=== PATIENT | female | born 1935 | race Caucasian/White ===

== ENCOUNTER → 2020-09-11 | Outpatient (CLI) | payer MEDICARE, OTHER ==
--- NOTE | 2020-09-11 15:29 | RAD ---
EXAM: Chest, 2 views. HISTORY: Chest pain. COMPARISON: None. FINDINGS: 2 views of the chest are obtained. There is increased right lung and left lower lobe inters titial opacity due to interstitial infiltrate or chronic interstitial changes. There is a prominent c ardiac silhouette. There is no pleural effusion or pneumothorax. IMPRESSION: Diffuse right lung and left lower lobe interstitial infiltrate or chronic initial changes . There is no consolidated pneumonia. Electronically signed by: Gris Dunn MD (09/11/2020 3:26 PM) [id number]
== END ==
LOC: RAD 14:57
PROVIDERS: ATTEND Specialist
DX: I50.21 Acute systolic (congestive) heart failure (principal)
CPT/HCPCS: 71046

== ENCOUNTER 2020-09-16 19:11 | Emergency (ER) | payer MEDICARE, OTHER ==
[~2020-09-16] VITALS: Ht 157.5 cm; Wt 88.6 kg
--- NOTE | 2020-09-16 19:24 | PHYS DOC ---
Past History Past Medical History: Anemia, Arthritis, CHF Past Medical History Parkinson General Adult EDM: Chief Complaint: BACK PAIN - NO INJURY HPI: HPI: ".. My back started hurting 2 days ago.. here on Lt... I got parkinson.. but this feels like pleursey... ".." My legs are also swelling more.. ".."..The main reason .. I am here is my back just hurts all the time.. Especially here on the left..something not right.. " " I have not fallen or anything.." Patient is a 85 year old female who presents with above hx and complaints back pain lumbar and thoracic x2 days. Patient denies any trauma. Patient denies any recent changes in meds. Patient has noted increased swelling in bilateral legs. Patient denies any history of coagulopathy. Does have a history of CHF, Parkinson, and anemia. The patient normally follows with [facility]. No history of fall or severe history of injury. No history of travel. No specific ill contacts. Has had a nonproductive cough. Review of Systems: Review of Systems: Constitutional: Denies fever or chills Eyes: Denies change in visual acuity HENT: Denies nasal congestion or sore throat Respiratory: Denies cough or shortness of breath Cardiovascular: Complains of increasing bilateral leg edema GI: Complains of abdominal pain, nausea,. Complains of flank pain. Denies vomiting, bloody stools or diarrhea : Denies dysuria Musculoskeletal: complaints of lumbar and Thoracic back pain and joint pain Integument: Denies rash Neurologic: Denies headache, focal weakness or sensory changes Endocrine: Denies polyuria or polydipsia Lymphatic: Denies swollen glands Psychiatric: Denies depression or anxiety Family History: Family History: Non-contributory Current Medications: Current Meds: See Nursing for home meds Allergies: Allergies: NKDA Physical Exam: PE: Constitutional: in acute distress, non-toxic appearance. [] HENT: Normocephalic, atraumatic, bilateral external ears normal, oropharynx moist, no oral exudates, nose normal. [] Eyes: PERRLA, EOMI, conjunctiva pale, no discharge. [] Neck: Normal range of motion, no tenderness, supple, no stridor. JVD in the sitting position Cardiovascular: Tachycardia heart rate, regular rhythm, no murmur [] Lungs & Thorax: Bilateral breath sounds equal apex with bibasilar crackles on auscultation [. PMI to the left Abdomen: Bowel sounds normal, soft, no tenderness, no masses, no pulsatile masses. Obese. Skin: Warm, dry, no erythema, no rash. Poor turgor Back: Thoracic and Lumbar tenderness, Lt CVA tenderness. Marked pain on percussion left flank. Extremities: No tenderness, no cyanosis, no clubbing, ROM intact, 2+ pitting edema. At level of knees. No cording appreciated. Arthritic changes. Neurologic: Alert and oriented X 3, moves extremities on request, does have distal sensory, no focal deficits noted. [] Psychologic: Affect anxious, judgement normal, mood normal. [] EKG: EKG: My interpretation of EKG shows a sinus tachycardia at 106 bpm. With left axis deviation. 1947 hrs. My interpretation of second EKG shows a sinus tachycardia 102 bpm. Still has left axis. No acute interval change from prior EKG EKG at 2350 hrs. Radiology/Procedures: Radiology/Procedures: [] [address] [place] [id number] [address] IMAGING REPORT Signed PATIENT: MANDY STEEN BACCOUNT: [id number] : 1935 LOCATION: ER AGE: 85 SEX: F EXAM STATUS: REG ER ORD. PHYSICIAN: KOKI AUGUSTIN MD REASON: PROCEDURE: PORTABLE CHEST 1V EXAM: CHEST ONE VIEW. HISTORY: Chest pain. COMPARISON: 09/11/2020. FINDINGS: A frontal view of the chest is obtained. There are mild bilateral basilar predominant interstitial opacities. There is no pneumothorax or clear pleural effusion. The heart is mildly enlarged. The aorta is calcified and tortuous. IMPRESSION: 1. Basilar predominant interstitial opacities are consistent with interstitial lung disease if chronic or mild pulmonary edema if acute. 2. Mild cardiomegaly. Electronically signed by: Tressa Srinivasan MD (09/16/2020 9:16 PM) [facility] DICTATED AND SIGNED BY: REJI SRINIVASAN MD DATE: 09/16/202113 CC: KOKI AUGUSTIN MD; SONIA ALFARO MD ~MTH0 0 IMAGING REPORT Signed PATIENT: MANDY STEENUNT: [id number] : 1935 LOCATION: ER AGE: 85 SEX: F EXAM STATUS: REG ER ORD. PHYSICIAN: KOKI AUGUSTIN MD REASON: pain, after cough PROCEDURE: CT THORACIC SPINE WO CONTRAST CT thoracic and lumbar spine without contrast 09/16/2020. Reason for exam: Pain after coughing. Helical noncontrast images were performed. Sagittal and coronal reconstructions were obtained. Exposure: One or more of the following individualized dose reduction techniques were utilized for this examination: 1. Automated exposure control 2. Adjustment of the mA and/or kV according to patient size 3. Use of iterative reconstruction technique. Thoracic spine findings: Alignment is normal. There is mild superior endplate compression of T6 and suggestion of mild wedging of T4. These are favored to be chronic. No acute fracture or destructive process is seen. Evaluation of the soft tissue components of the canal is limited without intrathecal contrast. A few mildly prominent lymph nodes are seen in the mediastinum. There is suggestion of some interstitial prominence with interlobular septal thickening. This may indicate edema. Infiltrate or atelectasis is seen posteriorly in the lower lobes. There is some calcification at the aortic valve. IMPRESSION: Some degenerative changes and chronic compressions are seen. No acute abnormality is identified. CT lumbar spine: There is some anterolisthesis of L4 on L5 measuring about 7 mm. Alignment otherwise appears normal. There is no loss of vertebral body height or other evidence for fracture. No destructive process is seen. Evaluation of the soft tissue components of the canal is limited without intrathecal contrast. There is likely at least some spinal stenosis at L4-5. Incidental note is made of a masslike structure arising laterally from the lower left kidney and extending over at least 4 cm. This has higher attenuation than a simple cyst, and a solid mass is possible. IMPRESSION: Potentially solid left renal mass. Neoplasm is a concern. There are degenerative changes and spondylolisthesis in the lumbar spine. No fracture or other acute abnormality is seen. Electronically signed by: Na Knox Jr., MD (09/16/2020 9:19 PM) [facility] DICTATED AND SIGNED BY: NA KNOX Jr, MD DATE: 09/16/202109 CC: KOKI AUGUSTIN MD; SONIA ALFARO MD ~MTH0 0 Heart Score: C/O Chest Pain: Yes HEART Score for Chest Pain: HEART Score for Chest Pain Response (Comments) Value History Moderately Suspicious 1 ECG Nonspecific Repolarizatio 1 Age > 65 2 Risk Factors 1 or 2 Risk Factors 1 Troponin < Normal Limit 0 Total 5 Risk Factors: Risk Factors: DM, Current or recent (<one month) smoker, HTN, HLP, family history of CAD, obesity. Risk Scores: Score 0 - 3: 2.5% MACE over next 6 weeks - Discharge Home Score 4 - 6: 20.3% MACE over next 6 weeks - Admit for Clinical Observation Score 7 - 10: 72.7% MACE over next 6 weeks - Early Invasive Strategies Course & Med Decision Making: Course & Med Decision Making Pertinent Labs and Imaging studies reviewed. (See chart for details) Discussed presentation, testing and tx plan with Dr. Cárdenas. Pt to be transfer to [facility] for cardiology and oncology consult. Impression: 1. Chest pain 2. Afib 3. Anemia Hgb 8.8 4. Back Pain 5. Renal Mass Lt.- Neoplasm suspected 6. CHF- BNP 1,072 7, Elevated D-dimer 1.66 [] Dragon Disclaimer: Dragon Disclaimer: This electronic medical record was generated, in whole or in part, using a voice recognition dictation system. Departure Departure: Referrals: SONIA ALFARO MD (PCP) [place] Disclaimer This chart was dictated in whole or in part using Voice Recognition software in a busy, high-work load, and often noisy Emergency Department environment. It may contain unintended and wholly unrecognized errors or omissions. Dragon Disclaimer This chart was dictated in whole or in part using Voice Recognition software in a busy, high-work load, and often noisy Emergency Department environment. It may contain unintended and wholly unrecognized errors or omissions. KOKI AUGUSTIN MD Sep 16, 2020 19:24
[2020-09-16] MEDS ORDERED: IV RINGERS SOLUTION,LACTATED 1,000 ML IV SCH (19:45)
[2020-09-16] MEDS ORDERED: MORPHINE SULFATE 10 MG/ML SYRINGE. SQ ONE (20:15)
[2020-09-16 20:27] LABS: BASO # 0.1 x10^3/uL (0.0-0.2); BASO % 1 % (0-3); EOS # 0.5 x10^3/uL (0.0-0.7); EOS % 6 % (0-3); HEMATOCRIT 28.1 % (36.0-47.0); HEMOGLOBIN 8.8 g/dL (12.0-15.5); LYMPH # 1.5 x10^3/uL (1.0-4.8); LYMPH % 18 % (24-48); MEAN CORPUSCULAR HEMOGLOBIN 25 pg (25-35); MEAN CORPUSCULAR HGB CONC 32 g/dL (31-37); MEAN CORPUSCULAR VOLUME 80 fL (79-100); MONO # 0.8 x10^3/uL (0.0-1.1); MONO % 9 % (0-9); NEUT # 5.5 x10^3uL (1.8-7.7); NEUT % 66 % (31-73); PLATELET COUNT 357 x10^3/uL (140-400); RED BLOOD COUNT 3.53 x10^6/uL (3.50-5.40); RED CELL DISTRIBUTION WIDTH 18.4 % (11.5-14.5); WHITE BLOOD COUNT 8.4 x10^3/uL (4.0-11.0)
[2020-09-16 20:35] LABS: CALCIUM 9.2 mg/dL (8.5-10.1); CREATININE 0.9 mg/dL (0.6-1.0); GFR 59.7; POTASSIUM 4.5 mmol/L (3.5-5.1)
[2020-09-16 20:47] LABS: ALBUMIN 3.2 g/dL (3.4-5.0); DIRECT BILIRUBIN 0.1 mg/dL (0.0-0.2); MAGNESIUM 2.1 mg/dL (1.8-2.4); TOTAL BILIRUBIN 0.2 mg/dL (0.2-1.0); TOTAL PROTEIN 7.9 g/dL (6.4-8.2)
--- NOTE | 2020-09-16 21:18 | RAD ---
EXAM: CHEST ONE VIEW. HISTORY: Chest pain. COMPARISON: 09/11/2020. FINDINGS: A frontal view of the chest is obtained. There are mild bilateral basilar predominant interstitial opacities. There is no pneumothorax or rhys r pleural effusion. The heart is mildly enlarged. The aorta is calcified and tortuous. IMPRESSION: 1. Basilar predominant interstitial opacities are consistent with interstitial lung disease if chroni c or mild pulmonary edema if acute. 2. Mild cardiomegaly. Electronically signed by: Tressa Srinivasan MD (09/16/2020 9:16 PM) [facility]
--- NOTE | 2020-09-16 21:21 | RAD ---
CT thoracic and lumbar spine without contrast 09/16/2020. Reason for exam: Pain after coughing. Helical noncontrast images were performed. Sagittal and coronal reconstructions were obtained. Exposu re: One or more of the following individualized dose reduction techniques were utilized for this exam ination: 1. Automated exposure control 2. Adjustment of the mA and/or kV according to patient size 3. Use of iterative reconstruction technique. Thoracic spine findings: Alignment is normal. There is mild superior endplate compression of T6 and s uggestion of mild wedging of T4. These are favored to be chronic. No acute fracture or destructive pr ocess is seen. Evaluation of the soft tissue components of the canal is limited without intrathecal c ontrast. A few mildly prominent lymph nodes are seen in the mediastinum. There is suggestion of some interstitial prominence with interlobular septal thickening. This may indicate edema. Infiltrate or a telectasis is seen posteriorly in the lower lobes. There is some calcification at the aortic valve. IMPRESSION: Some degenerative changes and chronic compressions are seen. No acute abnormality is iden tified. CT lumbar spine: There is some anterolisthesis of L4 on L5 measuring about 7 mm. Alignment otherwise appears normal. There is no loss of vertebral body height or other evidence for fracture. No destruct satya process is seen. Evaluation of the soft tissue components of the canal is limited without intrath ecal contrast. There is likely at least some spinal stenosis at L4-5. Incidental note is made of a masslike structure arising laterally from the lower left kidney and exte nding over at least 4 cm. This has higher attenuation than a simple cyst, and a solid mass is possibl e. IMPRESSION: Potentially solid left renal mass. Neoplasm is a concern. There are degenerative changes and spondylolisthesis in the lumbar spine. No fracture or other acute abnormality is seen. Electronically signed by: Carlos Knox Jr., MD (09/16/2020 9:19 PM) [facility]
[2020-09-17 00:58] VITALS: BP 133/86
--- NOTE | 2020-09-17 03:36 | EKG ---
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
--- NOTE | 2020-09-18 09:58 | EKG ---
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
== END 2020-09-17 00:40 | disposition admitted as inpatient to this hospital (09) ==
LOC: ER 19:11
DX: I48.91 Unspecified atrial fibrillation (principal); R07.9 Chest pain, unspecified; D64.9 Anemia, unspecified; M54.5 Low back pain; M54.6 Pain in thoracic spine; N28.89 Other specified disorders of kidney and ureter; R79.1 Abnormal coagulation profile; I50.9 Heart failure, unspecified; M19.90 Unspecified osteoarthritis, unspecified site; Z86.2 Personal history of diseases of the blood and blood-forming organs and certain disorders involving the immune mechanism
CPT/HCPCS: 36415; 71045; 72128; 72131; 80048; 80076; 82550; 83690; 83735; 83880; 84443; 84484; 85025; 85379; 85610; 85730; 93005; 96360; 96361; 96372; 99285; J2270; J7120

== ENCOUNTER 2021-05-01 05:35 | Emergency (ER) | payer MEDICARE, OTHER ==
[~2021-05-01] VITALS: Ht 154.9 cm; Wt 91.4 kg
[2021-05-01] MEDS ORDERED: IV NORMAL SALINE 500ML 500 ML IV ONE (06:30)
[2021-05-01] MEDS ORDERED: CONTRAST GIVEN. MC PRN (06:30)
--- NOTE | 2021-05-01 06:32 | EKG ---
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
--- NOTE | 2021-05-01 06:55 | PHYS DOC ---
Past History Past Medical History: Anemia, Arthritis, CHF Additional Past Medical Histor: parkinsons disease Past Surgical History: Appendectomy, Knee Replacement Alcohol Use: Occasionally General Adult EDM: Chief Complaint: BACK PAIN - NO INJURY HPI: HPI: Patient is a [age] year old [sex] who presents with [] Review of Systems: Review of Systems: Constitutional: Denies fever or chills Eyes: Denies redness or eye pain HENT: Denies nasal congestion or sore throat Respiratory: Denies cough or shortness of breath Cardiovascular: Denies chest pain or palpitations GI: Denies abdominal pain, nausea, or vomiting : Denies dysuria or hematuria Musculoskeletal: Denies back pain or joint pain Integument: Denies rash or skin lesions Neurologic: Denies headache, focal weakness or sensory changes Complete systems were reviewed and found to be within normal limits, except as documented in this note. Current Medications: Current Meds: Current Medications Medications (Trade) Dose Ordered Sig/Myrtle Start Time Stop Time Status Last Admin Dose Admin Fentanyl Citrate (Fentanyl 2ml Vial) 25 mcg 1X ONCE 05/01/21 07:00 05/01/21 07:01 Info (Do NOT chart on this entry -- for MONITORING) 1 each PRN DAILY PRN 05/01/21 06:30 05/03/21 06:29 Iohexol (Omnipaque 350 Mg/ml) 100 ml 1X ONCE 05/01/21 07:00 05/01/21 07:01 05/01/21 06:50 100 ML Sodium Chloride 500 ml @ 500 mls/hr 1X ONCE 05/01/21 06:30 05/01/21 07:29 Allergies: Allergies: Allergies Coded Allergies Type Severity Reaction Last Updated Verified No Known Drug Allergies 05/01/21 No Physical Exam: PE: Constitutional: Well developed, well nourished, no acute distress, non-toxic appearance HENT: Normocephalic, atraumatic Eyes: PERRL, EOMI, conjunctiva normal, no discharge Neck: Normal range of motion, no tenderness, supple Lungs & Thorax: No respiratory distress, equal chest rise and fall Abdomen: Soft, no tenderness Skin: Warm, dry, no erythema, no rash Back: No tenderness, no CVA tenderness Extremities: No tenderness, ROM intact, no edema Neurologic: Alert and oriented X 3, normal motor function, normal sensory function, no focal deficits noted Psychologic: Affect normal, judgment normal Current Patient Data: Vital Signs: Vital Signs Date Time Temp Pulse Resp B/P (MAP) Pulse Ox O2 Delivery O2 Flow Rate FiO2 05/01/21 05:45 98.1 100 24 148/73 (98) 94 Nasal Cannula 2.0 EKG: EKG: @0620 NSR at 93bpm with some wandering baseline (due to pt's tremor), NO ST elevation, QRS 96ms, QT/QTc 366/458ms Radiology/Procedures: Radiology/Procedures: [] Heart Score: Risk Factors: Risk Factors: DM, Current or recent (<one month) smoker, HTN, HLP, family history of CAD, obesity. Risk Scores: Score 0 - 3: 2.5% MACE over next 6 weeks - Discharge Home Score 4 - 6: 20.3% MACE over next 6 weeks - Admit for Clinical Observation Score 7 - 10: 72.7% MACE over next 6 weeks - Early Invasive Strategies Course & Med Decision Making: Course & Med Decision Making Pertinent Labs and Imaging studies reviewed. (See chart for details) [] Dragon Disclaimer: Dragon Disclaimer: This electronic medical record was generated, in whole or in part, using a voice recognition dictation system. Departure Departure: Impression: Primary Impression: Back pain Qualified Codes: M54.6 - Pain in thoracic spine Additional Impressions: Compression fracture Renal mass Disposition: HOME / SELF CARE / HOMELESS Condition: STABLE Referrals: SONIA ALFARO MD (PCP) Patient Instructions: Back Pain, Adult, [id number], Back, Compression Fracture Additional Instructions: A copy of your CT results has been provided to you to give to your PCP for further evaluation and treatment. You may also benefit from follow-up with Pain management: Dr. Allen Saenz [address] [facility], [address] [place] [address] Scripts Hydrocodone Bit/Acetaminophen (HYDROCODONE-APAP 5-325 ) 1 Each Tablet 0.5-1 TAB PO PRN Q6HRS PRN for PAIN, #20 TAB 0 Refills Prov: MARIA E MARTINEZ DO 05/01/21 Sennosides/Docusate Sodium (Colace 2-in-1 Tablet) 1 Each Tablet 1 TAB PO QHS for Constipation prevention for 30 Days, #30 TAB 0 Refills Prov: MARIA E MARTINEZ DO 05/01/21 MARIA E MARTINEZ DO May 01, 2021 06:55
[2021-05-01] MEDS ORDERED: IOHEXOL 350 MG/ML 100 ML VIAL. IV ONE (07:00)
[2021-05-01 07:01] LABS: BASO % 1 % (0-3); EOS # 0.2 x10^3/uL (0.0-0.7); EOS % 2 % (0-3); HEMATOCRIT 30.8 % (36.0-47.0); HEMOGLOBIN 9.8 g/dL (12.0-15.5); LYMPH # 1.3 x10^3/uL (1.0-4.8); LYMPH % 16 % (24-48); MEAN CORPUSCULAR HEMOGLOBIN 25 pg (25-35); MEAN CORPUSCULAR HGB CONC 32 g/dL (31-37); MEAN CORPUSCULAR VOLUME 77 fL (79-100); MONO # 0.7 x10^3/uL (0.0-1.1); MONO % 8 % (0-9); NEUT % 74 % (31-73); PLATELET COUNT 361 x10^3/uL (140-400); RED BLOOD COUNT 3.98 x10^6/uL (3.50-5.40); RED CELL DISTRIBUTION WIDTH 18.5 % (11.5-14.5); WHITE BLOOD COUNT 8.2 x10^3/uL (4.0-11.0)
[2021-05-01 07:09] LABS: CALCIUM 9.9 mg/dL (8.5-10.1); CREATININE 0.9 mg/dL (0.6-1.0); GFR 59.5; POTASSIUM 4.1 mmol/L (3.5-5.1)
[2021-05-01 07:24] LABS: ALBUMIN 3.6 g/dL (3.4-5.0); ALBUMIN/GLOBULIN RATIO 0.7 (1.0-1.7); MAGNESIUM 2.1 mg/dL (1.8-2.4); TOTAL BILIRUBIN 0.6 mg/dL (0.2-1.0); TOTAL PROTEIN 8.7 g/dL (6.4-8.2)
--- NOTE | 2021-05-01 08:39 | RAD ---
CT THORACIC SPINE WO, CT LUMBAR SPINE WO, CTA CHEST_ABDOMEN_AND PELVIS History: Severe back pain. No known fall. Known renal mass. Technique: -CT angiogram of the chest, abdomen and pelvis with intravenous contrast. 3-D MIPS coronal and sagitt al reformats are created. -Dedicated CT thoracic and lumbar spine performed in the excretory phase. Comparison: CT angiogram chest 09/17/2020. CT thoracic and lumbar spine 09/16/2020. Findings: CT chest, abdomen and pelvis: There is enlargement of the main pulmonary artery consistent with pulmonary arterial hypertension. No large or central PE is identified. Postsurgical changes from endovascular aortic valve repair. Moder ate aortic atherosclerotic calcification without thoracic aortic aneurysm or dissection. Heavy cueto ry artery and mitral valve calcifications. Cardiomegaly. No pericardial effusion. The thyroid is unremarkable. There is a mildly patulous esophagus and a small hiatal hernia. No media stinal adenopathy. Motion artifact limits evaluation in the lungs. There is a right lower lobe pulmonary nodule measurin g 1.2 cm (axial series 4 image 89) and a similar appearing left lower lobe nodule measuring 1.1 cm (a xial image 92). Both of these nodules appear to extend from the diaphragmatic pleural surface and may represent atelectatic change. No significant effusion. Diffuse prominence of the pulmonary vasculatu re and interstitial markings. Bilateral dependent atelectatic change. Degenerative changes of the bilateral shoulders. The visualized maxillary sinuses are clear. The liver is unremarkable. Distended gallbladder without adjacent inflammatory changes. Unremarkable pancreas and spleen. The adrenal glands are unremarkable. The right kidney is within normal limits. T he left kidney demonstrates a heterogeneous, peripherally enhancing mass measuring 6.4 x 5.2 x 5.6 cm . No hydronephrosis or nephrolithiasis. The stomach is decompressed. The small bowel is unremarkable. The appendix is not definitively visual ized however there appear to be postsurgical changes at the cecum, possible post appendectomy. Mild c olonic stool burden. No significant diverticular disease. The bladder is unremarkable. The uterus and adnexa are within normal limits. Atherosclerotic calcification of the abdominal aorta with mild infrarenal ectasia to 2.2 cm and mild bilateral common iliac ectasia measuring 1.4 cm on the right and 1.6 cm on the left. No abdominal pel julio adenopathy identified. Decreased osseous mineralization. Advanced degenerative changes of the enthesis pubis and right great er than left sacroiliac joint with chondral irregularity and subchondral sclerosis. CT thoracic spine and CT lumbar spine: There are 12 rib-bearing thoracic vertebral segments. Degenerative changes are present at the lower c ervical spine and cervicothoracic junction with disc height loss and endplate osteophytes. There is a compression deformity at the T5 vertebral body which is progressive from September, now with approximately 50 percent height loss. Multilevel degenerative changes in the thoracic spine with endp late osteophytes throughout. Exaggerated thoracic kyphosis. No significant thoracic spinal canal or f oraminal stenosis. There are 5 nonrib-bearing lumbar vertebral segments. No fracture is identified. There is mild retrol isthesis of L1 on L2 and L2 on L3. There is moderate anterolisthesis of L4 on L5. Moderate disc space narrowing L4-L5 and L5-S1. Prominent facet hypertrophy throughout the lumbar spine without spondylol ysis. Probable moderate or greater neural foraminal stenosis at L4-L5 bilaterally, and L5-S1 on the r ight. Mild to moderate neural foraminal stenosis at L3-L4 bilaterally and L5-S1 on the left. Impression: 1. No aortic dissection or aneurysm. Mild ectasia of the infrarenal aorta to 2.2 cm and bilateral il iac artery ectasia. 2. Left renal mass concerning for renal cell carcinoma measuring 6.4 cm. No adenopathy identified. 3. Progression of compression fracture at T5, now with approximately 50 percent height loss. 4. Nodular densities in the bilateral lower lobes adjacent to the diaphragm measuring 1.2 cm on the right and 1.1 cm on left. These may represent pulmonary nodules versus atelectatic disease. In the se tting of suspected left renal malignancy, metastatic disease to the lungs is not excluded. 5. Right greater than left sacroiliitis. Osteitis pubis. 6. Cardiomegaly, coronary artery disease, aortic valve replacement and pulmonary vascular congestion . 7. Multilevel degenerative changes of the lumbar spine with potential for symptomatic neural foramin al stenoses at multiple levels. Exposure: One or more of the following individualized dose reduction techniques were utilized for thi s examination: 1. Automated exposure control 2. Adjustment of the mA and/or kV according to patient size 3. Use of iterative reconstruction technique. Electronically signed by: Zafar Clay MD (05/01/2021 8:36 AM) [facility]
[2021-05-01] MEDS ORDERED: CARBIDOPA/LEVODOPA 25/100MG TABLET PO ONE (09:00)
[2021-05-01 09:25] VITALS: BP 156/100
[2021-05-01] MEDS ORDERED: SENN-121 PO (09:35)
[2021-05-01] MEDS ORDERED: HYDR-2155 PO ×2 (09:35→09:36)
== END 2021-05-01 09:40 | disposition home or self-care (01) ==
LOC: ER 05:35
DX: S22.059A Unspecified fracture of T5-T6 vertebra, initial encounter for closed fracture (principal); N28.89 Other specified disorders of kidney and ureter; M19.90 Unspecified osteoarthritis, unspecified site; I50.9 Heart failure, unspecified; G20 Parkinson's disease; Z86.2 Personal history of diseases of the blood and blood-forming organs and certain disorders involving the immune mechanism; Z90.89 Acquired absence of other organs; X58.XXXA Exposure to other specified factors, initial encounter; Y93.89 Activity, other specified; Y92.89 Other specified places as the place of occurrence of the external cause; Y99.8 Other external cause status
CPT/HCPCS: 36415; 71275; 72128; 72131; 74174; 74175; 80053; 82553; 83690; 83735; 83880; 84484; 85025; 85610; 85730; 93005; 96374; 99285; J3010; J7040; Q9967

== ENCOUNTER → 2021-05-07 | Outpatient (CLI) | payer MEDICARE, OTHER ==
[2021-05-01 09:25] VITALS: BP 156/100
[~2021-05-07] MED LIST: HYDR-2155 PO; SENN-121 PO
--- NOTE | 2021-05-07 12:30 | RAD ---
EXAM: XR CHEST 2V, XR RIBS 2 VIEWS RT 05/07/2021 9:50 AM CLINICAL INDICATION: CHF, shortness of breath. Right anterior rib pain. COMPARISON: Chest radiograph 09/11/2020 and CTA chest abdomen pelvis 05/01/2021 TECHNIQUE: PA and lateral views of the chest. AP and oblique views of the right ribs. FINDINGS: CHEST: The cardiomediastinal silhouette is stable. There are changes of TAVR. The lungs are adequatel y expanded. There is no consolidation, pleural effusion, or pneumothorax. No pulmonary edema. Mild li near opacities in the lung bases, likely scarring or atelectasis, unchanged. Nodular opacities along the diaphragm on CT chest 05/01/2021 are not well seen by radiograph. There is a left lateral eighth rib fracture, likely unchanged from 09/20/2020. A compression fracture of T5 with about 60 percent williams tebral body height loss is unchanged from 05/01/2021. RIGHT RIBS: No displaced rib fracture. See above for findings regarding the chest. There is mild righ t glenohumeral and acromioclavicular degenerative joint disease with narrowing of the acromiohumeral distance suspicious for chronic rotator cuff tear. IMPRESSION: 1. No pulmonary edema or other acute cardiopulmonary abnormality. 2. No displaced right rib fracture. 3. Probable old left lateral eighth rib fracture. Unchanged moderate to severe compression fracture o f T5. Electronically signed by: Kesha Gallegos MD (05/07/2021 12:28 PM) [id number]
== END ==
LOC: RAD 09:42
PROVIDERS: ATTEND Specialist
DX: R91.8 Other nonspecific abnormal finding of lung field (principal); M48.54XD Collapsed vertebra, not elsewhere classified, thoracic region, subsequent encounter for fracture with routine healing; M19.011 Primary osteoarthritis, right shoulder
CPT/HCPCS: 71046; 71100

== ENCOUNTER → 2021-06-05 | Outpatient (CLI) | payer MEDICARE, OTHER ==
--- NOTE | 2021-06-05 11:56 | RAD ---
EXAMINATION: XR CHEST 2V CLINICAL HISTORY: PLEURODYNIA EXAM DATE/TIME: 06/05/2021 10:57 AM COMPARISON: 05/07/2021 FINDINGS: Lines, Tubes, and Devices: None. Cardiomediastinal Silhouette: Stable heart size with changes of TAVR. Aortic atherosclerotic calcific ation. Lungs and Pleura: No evidence of focal airspace consolidation, pleural effusion, or pneumothorax. Non specific interstitial prominence and bibasilar subsegmental atelectasis and/or scarring, similar to p rior study. Bones and Soft Tissues: Suspected interval moderate to severe compression fracture in the T6 vertebra l body with similar appearing T5 compression fracture. Multilevel thoracolumbar degenerative changes. IMPRESSION: No evidence of acute cardiopulmonary abnormality. Suspected interval moderate to severe compression fracture in the T6 vertebral body, correlate clinic ally and consider dedicated T-spine radiographs versus MRI/CT for further evaluation if indicated. Electronically signed by: Amando Jack DO (06/05/2021 11:53 AM) [id number]
== END ==
LOC: RAD 10:35
PROVIDERS: ATTEND Specialist
DX: I70.0 Atherosclerosis of aorta (principal); M47.815 Spondylosis without myelopathy or radiculopathy, thoracolumbar region; M48.54XA Collapsed vertebra, not elsewhere classified, thoracic region, initial encounter for fracture
CPT/HCPCS: 71046

== ENCOUNTER 2021-06-08 09:06 | Emergency (ER) | payer MEDICARE, OTHER ==
[~2021-06-08] VITALS: Ht 154.9 cm; Wt 91.4 kg
--- NOTE | 2021-06-08 09:23 | PHYS DOC ---
Past History Past Medical History: Anemia, Arthritis, CHF Additional Past Medical Histor: parkinsons disease, mass on kidney Past Surgical History: Appendectomy, Knee Replacement, Other Additional Past Surgical Histo: Carpal tunnel, heart valve replacement Alcohol Use: Occasionally Adult General Chief Complaint Chief Complaint: SHORTNESS OF BREATH [facility] HPI Patient is a 86-year-old female presenting via EMS for shortness of breath. Thi s is an acute on chronic issue. Patient reports she was here approximately 3 weeks for a fall, she says she has been short of breath for past 2 weeks without any known inciting event, trauma, ingestion, change in medication or other exposure. She has history of chronic respiratory failure and typically on 1 L of oxygen via nasal cannula but reports since symptom onset approximately 2 weeks ago she has had to increase this to 2 L daily. She is unsure about her fluid status, states that she actually thinks her legs have decreased in overall size but also says this might be due to fact that she has not been eating or drinking as well as she should. Ongoing symptoms concerned patient and daughter who subsequently called EMS. On arrival, EMS found patient to be hypoxic on typical 2 L oxygen in the 80s, h she was subsequently placed on CPAP and transferred to our facility for evaluation. On arrival, patient complains of continued shortness of breath that is worse with exertion, no fever, chills, lightheadedness or dizziness, chest pain or pressure, ripping or tearing sensation in chest, abdominal pain, dysuria or other concerning findings. She admits she has been compliant with all medications that includes a daily aspirin and an unknown anticoagulant, she thinks she is on this for a mechanical heart valve Review of Systems Review of Systems Fourteen body systems of review of systems have been reviewed. See HPI for pertinent positives and negative responses, other michel all other systems are negative, non-pertinent or non-contributory Allergies Allergies Allergies Coded Allergies Type Severity Reaction Last Updated Verified No Known Drug Allergies 05/01/21 No Physical Exam Physical Exam Constitutional: Age-appropriate, in no acute distress but appears tired with increased work of breathing. Hunched over in bed with poor posture HENT: Normocephalic, atraumatic, bilateral external ears normal, oropharynx moist, no oral exudates, nose normal. Eyes: PERRLA, EOMI, conjunctiva normal, no discharge. Neck: Normal range of motion, no tenderness, supple, no stridor. Cardiovascular: Heart rate regular, sinus rhythm, no murmurs rubs or gallops Lungs & Thorax: Bilateral breath sounds clear to auscultation Abdomen: Bowel sounds normal, soft, no tenderness, no masses, no pulsatile masses. Nonsurgical abdomen, no peritoneal signs Skin: Warm, dry, no erythema, no rash. Back: No tenderness, no CVA tenderness. Extremities: No tenderness, no cyanosis, no clubbing, ROM intact, no edema. Neurologic: Alert and oriented X 3, grossly normal motor & sensory function, no focal deficits noted. Psychologic: Affect normal, judgement normal, mood normal. Current Patient Data Vital Signs Vital Signs Date Time Temp Pulse Resp B/P (MAP) Pulse Ox O2 Delivery O2 Flow Rate FiO2 06/08/21 09:12 98.8 102 26 161/74 (103) 95 Nasal Cannula 5.0 Lab Results Laboratory Tests Test 06/08/21 09:12 06/08/21 09:50 06/08/21 10:30 06/08/21 12:26 White Blood Count 10.8 x10^3/uL Red Blood Count 3.81 x10^6/uL Hemoglobin 9.4 g/dL Hematocrit 30.0 % Mean Corpuscular Volume 79 fL Mean Corpuscular Hemoglobin 25 pg Mean Corpuscular Hemoglobin Concent 31 g/dL Red Cell Distribution Width 18.8 % Platelet Count 442 x10^3/uL Neutrophils (%) (Auto) 87 % Lymphocytes (%) (Auto) 6 % Monocytes (%) (Auto) 7 % Eosinophils (%) (Auto) 0 % Basophils (%) (Auto) 1 % Neutrophils # (Auto) 9.4 x10^3uL Lymphocytes # (Auto) 0.6 x10^3/uL Monocytes # (Auto) 0.7 x10^3/uL Eosinophils # (Auto) 0.0 x10^3/uL Basophils # (Auto) 0.1 x10^3/uL Prothrombin Time 11.0 SEC Prothromb Time International Ratio 1.1 Activated Partial Thromboplast Time 30 SEC Sodium Level 134 mmol/L Potassium Level 4.3 mmol/L Chloride Level 95 mmol/L Carbon Dioxide Level 27 mmol/L Anion Gap 12 Blood Urea Nitrogen 28 mg/dL Creatinine 0.9 mg/dL Estimated GFR (Cockcroft-Gault) 59.5 Glucose Level 112 mg/dL Lactic Acid Level 1.2 mmol/L Calcium Level 10.0 mg/dL Troponin I High Sensitivity 30 ng/L 32 ng/L [id number] Natriuretic Peptide 1025 pg/mL SARS-CoV-2 Antigen (Rapid) Negative Bedside Venous pH 7.33 Bedside Venous pCO2 52 mmHg Bedside Venous pO2 30 mmHg Venous Blood HCO3 27 mmol/L POC Venous O2 Saturation (Margarita) 51 % Bedside FiO2 44 Test 06/08/21 12:39 06/08/21 15:23 Bedside Venous pH 7.28 Bedside Venous pCO2 62 mmHg Bedside Venous pO2 31 mmHg Venous Blood HCO3 29 mmol/L POC Venous O2 Saturation (Margarita) 50 % Bedside FiO2 80 Troponin I High Sensitivity 70 ng/L Current Medications Medications (Trade) Dose Ordered Sig/Myrtle Route PRN Reason Start Time Stop Time Status Last Admin Dose Admin Nitroglycerin (Nitrostat) 0.4 mg PRN Q5MIN PRN SL CP RATING > 07/1606/08/21 09:30 06/09/21 09:29 06/08/21 09:49 Aspirin (Aspirin Chewable) 162 mg 1X ONCE PO 06/08/21 09:30 06/08/21 09:44 DC 06/08/21 09:49 Ceftriaxone Sodium 1 gm/ Sodium Chloride 50 ml @ 100 mls/hr 1X ONCE IV 06/08/21 10:45 06/08/21 11:14 DC 06/08/21 12:02 Azithromycin 500 mg/Sodium Chloride 250 ml @ 250 mls/hr 1X ONCE IV 06/08/21 10:45 06/08/21 11:44 DC 06/08/21 13:30 Furosemide (Lasix) 40 mg 1X ONCE IVP 06/08/21 10:45 06/08/21 10:50 DC 06/08/21 12:02 Iohexol (Omnipaque 350 Mg/ml) 100 ml 1X ONCE IV 06/08/21 11:30 06/08/21 11:31 DC Sodium Chloride 50 ml @ As Directed STK-MED ONCE .ROUTE 06/08/21 11:58 06/08/21 11:58 DC Ceftriaxone Sodium (Rocephin) 1 gm STK-MED ONCE .ROUTE 06/08/21 11:58 06/08/21 11:58 DC Acetaminophen/ Hydrocodone Bitart (Lortab 5/325) 1 tab 1X ONCE PO 06/08/21 12:15 06/08/21 12:22 DC 06/08/21 13:34 Sodium Chloride 250 ml @ As Directed STK-MED ONCE .ROUTE 06/08/21 13:24 06/08/21 13:25 DC Azithromycin (Zithromax) 500 mg STK-MED ONCE IV 06/08/21 13:24 06/08/21 13:25 DC EKG EKG EKG ordered and interpreted by myself at 1001 hrs. is sinus tachycardia at 103 bpm, unremarkable intervals, left axis deviation, no obvious ischemic findings, no STEMI Radiology/Procedures Radiology/Procedures EXAMINATION: Chest radiograph. VIEWS: Single AP view of the chest COMPARISON: 06/05/2021 INDICATION:86 years, Female, chest pain. FINDINGS: Low lung volumes. Patient is rotated which results in partial obscuration of the left lung apex. Stable cardiomediastinal silhouette with changes of TAVR. Left basilar opacity resulting in obscuration of the left costophrenic angle. There is increased atelectasis or edema along the right minor fissure. No pneumothorax or right pleural effusion. No acute osseous process. IMPRESSION: Poor inspiratory effort with left basilar opacity which may represent atelectasis, small layering pleural effusion or developing infiltrate. Electronically signed by: Alfredo Holland DO (06/08/2021 9:44 AM) [id number] ////////////////////////////// CTA CHEST History: Short of breath, hypoxia, rule out PE. Comparison: Chest x-ray 06/05/2021. CT chest 05/01/2021. Technique: CTA of the pulmonary arteries with intravenous contrast. 3-D postprocessing was performed. Findings: Pulmonary arteries: No pulmonary embolism. Enlarged pulmonary arteries consistent with pulmonary arterial hypertension. Aorta and great vessels: Endovascular aortic valve replacement. Moderate atherosclerotic calcification of the aorta. No aneurysm or dissection. Thyroid: No significant abnormalities. Mediastinum and rush: No mediastinal masses or adenopathy is seen. Esophagus: Mildly patulous esophagus. Heart: Endovascular aortic valve replacement. Heavy mitral valve calcifications. Enlarged heart size. Heavy coronary artery calcification of the left anterior descending. No pericardial effusion. Airways, Lungs, Pleura: Increasing left lower lobe airspace consolidation. Mild peripheral consolidation in the right lower lobe is also mildly increased. Thickening of the pulmonary interstitial spaces. Upper abdomen: Small sliding hiatal hernia. Redemonstrated heterogeneous mass of the left kidney measuring approximately 6.3 cm diameter concerning for carcinoma. Osseous structures and soft tissues: Since the May 01 exam, there has been new severe compression deformity of the T6 vertebral body and progressive compression deformity at the T5 vertebral body. New displaced transverse fracture of the manubrium. Severe focal kyphosis of the thoracic spine. Impression: 1. No pulmonary embolism, aortic aneurysm or aortic dissection. 2. New from May 01 severe T6 vertebral body compression fracture and progressive T5 vertebral body compression fracture as well as new displaced transverse fracture of the manubrium. 3. Progressive consolidation left lower lobe and increased peripheral opacities right lower lobe may represent atelectasis however superimposed infection cannot be excluded. Superimposed pulmonary interstitial edema. 4. Redemonstrated left renal mass concerning for renal cell carcinoma. Heart Score C/O Chest Pain: No HEART Score for Chest Pain: HEART Score for Chest Pain Response (Comments) Value History Moderately Suspicious 1 ECG Normal 0 Age > 65 2 Risk Factors >3 Risk Factors or Hx CAD 2 Troponin >1-<3x Normal Limit 1 Total 6 Risk Factors: Risk Factors: DM, Current or recent (<one month) smoker, HTN, HLP, family history of CAD, obesity. Risk Scores: Risk Factors: DM, Current or recent (<one month) smoker, HTN, HLP, family history of CAD, obesity. Course & Med Decision Making Course & Med Decision Making Airway patent, increased work of breathing, IV access and vitals obtained concerning for tachypnea, tachycardia, and hypoxia on typical 1 L of oxygen via nasal cannula which she wears at home in the upper 80s HPI limited from patient, physical exam and comprehensive ER work-up concerning for numerous findings Appears patient is suffering from acute on chronic respiratory failure, likely fluid overload in origin as patient symptoms have been increasing for past 2 weeks without any concerning signs for systemic disease. Antibiotics prophylactically given in addition to IV diuresis Troponin elevated, likely supply demand mismatch from respiratory issues. She is on an unknown anticoagulant, INR 1.1. Patient has known renal mass concerning for renal cell carcinoma per CT imaging. Patient unsure if this has been worked up. More investigation required Patient also has new T5 and T6 fractures that are nontraumatic in nature. Neurosurgery [employer] at [facility] contacted, no indication for any emergent or surgical issues. Patient will likely get MRI at accepting facility Patient desaturated despite being on 5 L oxygen via nasal cannula as she kept pulling this off, decision made to put on BiPAP which automatically increase patient's low 90s oxygen saturations to upper 90s with improvement in respiratory status As such, hospitalist at [facility] was contacted and patient was ultimately accepted under the care of Dr. Rao Next of kin, daughter, was contacted and notified of entirety of ER visit and need for hospital transfer, she was amenable to plan of care as discussed. She was unsure of all medications patient was taking but plans to bring the list to [facility]. She confirms patient is full CODE STATUS at time of transfer Dragon Disclaimer Dragon Disclaimer This electronic medical record was generated, in whole or in part, using a voice recognition dictation system. Departure Departure: Impression: Primary Impression: Acute and chronic respiratory failure Additional Impressions: Acute exacerbation of CHF (congestive heart failure) Compression fracture of thoracic spine, non-traumatic Renal mass Elevated troponin Disposition: 02 [facility] ([facility]) Admitting Physician: Other (dr barragan) Condition: STABLE Referrals: SONIA ALFARO MD (PCP) Problem Qualifiers DEVAN JARA DO Jun 08, 2021 09:23
[2021-06-08] MEDS ORDERED: NITROGLYCERIN SUBLINGUAL 0.4 MG BOTTLE OF 25. SL PRN (09:30)
[2021-06-08] MEDS ORDERED: ASPIRIN CHEWABLE 81 MG TABLET. PO ONE (09:30)
[2021-06-08 09:31] LABS: BASO # 0.1 x10^3/uL (0.0-0.2); BASO % 1 % (0-3); EOS % 0 % (0-3); HEMOGLOBIN 9.4 g/dL (12.0-15.5); LYMPH # 0.6 x10^3/uL (1.0-4.8); LYMPH % 6 % (24-48); MEAN CORPUSCULAR HEMOGLOBIN 25 pg (25-35); MEAN CORPUSCULAR HGB CONC 31 g/dL (31-37); MEAN CORPUSCULAR VOLUME 79 fL (79-100); MONO # 0.7 x10^3/uL (0.0-1.1); MONO % 7 % (0-9); NEUT # 9.4 x10^3uL (1.8-7.7); NEUT % 87 % (31-73); PLATELET COUNT 442 x10^3/uL (140-400); RED BLOOD COUNT 3.81 x10^6/uL (3.50-5.40); RED CELL DISTRIBUTION WIDTH 18.8 % (11.5-14.5); WHITE BLOOD COUNT 10.8 x10^3/uL (4.0-11.0)
[2021-06-08 09:42] LABS: CREATININE 0.9 mg/dL (0.6-1.0); GFR 59.5; POTASSIUM 4.3 mmol/L (3.5-5.1)
--- NOTE | 2021-06-08 09:46 | RAD ---
EXAMINATION: Chest radiograph. VIEWS: Single AP view of the chest COMPARISON: 06/05/2021 INDICATION:86 years, Female, chest pain. FINDINGS: Low lung volumes. Patient is rotated which results in partial obscuration of the left lung apex. Stab le cardiomediastinal silhouette with changes of TAVR. Left basilar opacity resulting in obscuration o f the left costophrenic angle. There is increased atelectasis or edema along the right minor fissure. No pneumothorax or right pleural effusion. No acute osseous process. IMPRESSION: Poor inspiratory effort with left basilar opacity which may represent atelectasis, small layering ple ural effusion or developing infiltrate. Electronically signed by: Alfredo Holland DO (06/08/2021 9:44 AM) [id number]
--- NOTE | 2021-06-08 10:26 | EKG ---
[address] [address] Test Date: 2021-06-08 Test Time: 09:58:38 Pat Name: MANDY STEEN Department: Room: Gender: F Registered Nurse Obstetrics: CHERELLE : 1935 Requested By: DEVAN JARA Order Number: [id number] Reading MD: Moy Crawford MD Measurements Intervals [place]ota Rate: 103 P: 18 IA: 174 QRS: -23 QRSD: 104 T: 46 QT: 342 QTc: 450 Interpretive Statements SINUS TACHYCARDIA NON-SPECIFIC ST/T [facility] Electronically Signed On 06-10-2021 20:52:20 CRISIS COUNSELOR by Moy Crawford MD
[2021-06-08] MEDS ORDERED: FUROSEMIDE 40 MG/4 ML VIAL IVP ONE (10:45)
[2021-06-08] MEDS ORDERED: AZITHROMYCIN 500 MG in IV NORMAL SALINE 250ML 250 ML IV ONE (10:45)
[2021-06-08] MEDS ORDERED: IOHEXOL 350 MG/ML 100 ML VIAL. IV ONE (11:30)
[2021-06-08] MEDS ORDERED: IV NORMAL SALINE 50ML 50 ML ONE (11:58)
[2021-06-08] MEDS ORDERED: cefTRIAXone SODIUM 1 GM VIAL ONE (11:58)
[2021-06-08] MEDS ORDERED: HYDROcodone/APAP 5/325MG 1 TAB TABLET PO ONE (12:15)
--- NOTE | 2021-06-08 12:45 | RAD ---
CTA CHEST History: Short of breath, hypoxia, rule out PE. Comparison: Chest x-ray 06/05/2021. CT chest 05/01/2021. Technique: CTA of the pulmonary arteries with intravenous contrast. 3-D postprocessing was performed. Findings: Pulmonary arteries: No pulmonary embolism. Enlarged pulmonary arteries consistent with pulmonary to rial hypertension. Aorta and great vessels: Endovascular aortic valve replacement. Moderate atherosclerotic calcificatio n of the aorta. No aneurysm or dissection. Thyroid: No significant abnormalities. Mediastinum and rush: No mediastinal masses or adenopathy is seen. Esophagus: Mildly patulous esophagus. Heart: Endovascular aortic valve replacement. Heavy mitral valve calcifications. Enlarged heart size. Heavy coronary artery calcification of the left anterior descending. No pericardial effusion. Airways, Lungs, Pleura: Increasing left lower lobe airspace consolidation. Mild peripheral consolidat ion in the right lower lobe is also mildly increased. Thickening of the pulmonary interstitial spaces . Upper abdomen: Small sliding hiatal hernia. Redemonstrated heterogeneous mass of the left kidney valerie uring approximately 6.3 cm diameter concerning for carcinoma. Osseous structures and soft tissues: Since the May 01 exam, there has been new severe compression deformity of the T6 vertebral body and progressive compression deformity at the T5 vertebral body. N ew displaced transverse fracture of the manubrium. Severe focal kyphosis of the thoracic spine. Impression: 1. No pulmonary embolism, aortic aneurysm or aortic dissection. 2. New from May 01 severe T6 vertebral body compression fracture and progressive T5 vertebral abdirahman dy compression fracture as well as new displaced transverse fracture of the manubrium. 3. Progressive consolidation left lower lobe and increased peripheral opacities right lower lobe may represent atelectasis however superimposed infection cannot be excluded. Superimposed pulmonary inte rstitial edema. 4. Redemonstrated left renal mass concerning for renal cell carcinoma. ------ Exposure: One or more of the following individualized dose reduction techniques were utilized for thi s examination: 1. Automated exposure control 2. Adjustment of the mA and/or kV according to patient size 3. Use of iterative reconstruction technique. Electronically signed by: Zafar Clay MD (06/08/2021 12:43 PM) [id number]
[2021-06-08] MEDS ORDERED: IV NORMAL SALINE 250ML 250 ML ONE (13:24)
[2021-06-08] MEDS ORDERED: AZITHROMYCIN 500 MG VIAL. IV ONE (13:24)
[2021-06-08 16:15] VITALS: BP 106/68
== END 2021-06-08 18:44 | disposition short-term general hospital (02) ==
LOC: ER 09:06
DX: J96.20 Acute and chronic respiratory failure, unspecified whether with hypoxia or hypercapnia (principal); M48.54XA Collapsed vertebra, not elsewhere classified, thoracic region, initial encounter for fracture; N28.89 Other specified disorders of kidney and ureter; R77.8 Other specified abnormalities of plasma proteins; I50.9 Heart failure, unspecified; M19.90 Unspecified osteoarthritis, unspecified site; G20 Parkinson's disease; Z20.822 Contact with and (suspected) exposure to COVID-19; Z86.2 Personal history of diseases of the blood and blood-forming organs and certain disorders involving the immune mechanism
CPT/HCPCS: 36415; 51702; 71045; 71275; 80048; 82803; 83605; 83880; 84484; 85025; 85610; 85730; 87040; 87426; 93005; 96365; 96367; 96375; 99285; C9803; J0456; J0696; J1940; J7050; U0003